=== PATIENT | male | born 1965 | race Asian ===

== ENCOUNTER 2017-05-21 13:35 | Emergency (ER) | payer OTHER, MEDICAID ==
[2017-05-21 13:43] VITALS: TEMP 98.2
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
[2017-05-21 16:02] VITALS: BP 142/81; PULSE 78; RESP 18; O2SAT 97
== END 2017-05-21 16:02 | disposition home or self-care (01) ==
DX: S16.1XXA Strain of muscle, fascia and tendon at neck level, initial encounter (principal); S60.221A Contusion of right hand, initial encounter; V89.2XXA Person injured in unspecified motor-vehicle accident, traffic, initial encounter; Y92.410 Unspecified street and highway as the place of occurrence of the external cause